=== PATIENT | male | born 1995 | race Caucasian/White ===

== ENCOUNTER 2022-09-07 11:16 | Inpatient (IN) | payer OTHER, SELFPAY ==
[2022-09-07 11:25] VITALS: BP 121/67; PULSE 78; RESP 16; TEMP 36.6; O2SAT 98; BMI 24.4
--- NOTE | 2022-09-07 11:26 | ED_ITS ---
HPI - Psych General Chief Complaint: Psychiatric Symptoms Stated Complaint: crisis Time Seen by Provider: 09/07/22 11:52 Related Data Home Medications Medication Instructions Recorded Confirmed fluoxetine 20 mg capsule 20 mg PO DAILY 09/07/22 09/07/22 trazodone 50 mg tablet 50 mg PO BEDTIME PRN Insomnia 09/07/22 09/07/22 Allergies Allergy/AdvReac Type Severity Reaction Status Date / Time No Known Allergies Allergy Verified 09/07/22 12:09 [facility] Social History Social History Household Members: Family Patient Tobacco Use Status: Current everyday Tobacco user Tobacco use type: Smokeless Tobacco Patient Interested in Nicotine Replacement: Yes Use of substances other than those prescribed or required for medical reasons: Yes Substance Use Type: Marijuana Substance Use Frequency: Chronic Longstanding Currently Displaying Signs/Symptoms of Drug Intoxication Withdrawal: No Have you been hit, kicked, punched, or otherwise hurt by someone within the past year? If so, by whom?: No Do you feel safe in your current relationship?: No Current Relationship Is there a partner from a previous relationship who is making you feel unsafe now?: No Are you made to feel afraid or neglected: No Spiritual Healthcare Practices: Denies Mormonism Healthcare Practices: Denies Cultural Healthcare Practices: Denies Advance Directives: No Advance Directives Information Provided: No Do you have thoughts of harming others: None Do you have a plan to hurt others: No Plan Nutrition Risks: Poor intake 0-25% >4 days service: No Sexual orientation: Don't Know Physical Exam Vital Signs: Vital Signs: Last Vital Signs Temp 97.8 F 09/08/22 08:45 Pulse 92 09/08/22 08:45 Resp 20 09/08/22 08:45 BP 140/70 H 09/08/22 08:45 Pulse Ox 96 09/08/22 08:45 O2 Del Method 09/08/22 08:45 BMI result Body Mass Index 24.4 Course Course Course Narrative: RME: Patient is a 27-year-old male who presents to the emergency department with reports of feeling scared, anxious, nervous about potential for nuclear war, making him unable to work. He also reports vomiting in the mornings, having generalized back pain that is ongoing. Recently started taking new psych medications this week, has a correctional facility psychiatrist provider. Crisis was in the home today and was recommended to come to ED. Denies SI/HI. Reports marijuana usage, denies additional recreational drug or alcohol usage. Plan: transfer to [facility], [facility] evaluation for whether inpatient psych services required Medications Administered Discontinued Medications Generic Name Dose Route Start Last Admin Trade Name Jalen PRN Reason Stop Dose Admin Haloperidol 2 mg 09/07/22 12:09 09/07/22 12:36 Haloperidol 1 Mg Tablet PO 09/07/22 12:10 2 mg ONCE ONE Administration Hydroxyzine HCl 25 mg 09/07/22 16:59 09/08/22 06:23 Hydroxyzine Hcl 25 Mg Tablet PO 25 mg Q6H PRN Administration Anxiety Influenza Virus Vaccine 0.5 ml 09/07/22 18:11 09/07/22 18:29 Flu Vacc [id number](6mos Up)/Pf 0.5 Ml Syringe IM 09/07/22 18:12 Not Given .ONCE ONE Lorazepam 1 mg 09/07/22 12:09 09/07/22 12:37 Lorazepam 1 Mg Tablet PO 09/07/22 12:10 1 mg ONCE ONE Administration Nicotine Polacrilex 2 mg 09/07/22 15:58 09/07/22 16:01 Nicotine Polacrilex Lozenge 2 Mg Lozenge BUCCAL 09/07/22 15:59 2 mg ONCE ONE Administration Nicotine Polacrilex 4 mg 09/07/22 16:59 09/08/22 12:28 Nicotine Polacrilex 2 Mg Gum BUCCAL 4 mg Q2H PRN Administration Nicotine Cravings Omeprazole 40 mg 09/07/22 12:09 09/07/22 12:37 Omeprazole 40 Mg Capsule.Dr PO 09/07/22 12:10 40 mg ONCE ONE Administration Trazodone HCl 50 mg 09/07/22 16:59 09/07/22 22:56 Trazodone Hcl 50 Mg Tablet PO 50 mg BEDTIME PRN Administration Insomnia Medical Decision Making Lab Data Result Diagrams: 09/07/22 12:26 09/08/22 08:24 Labs: Lab Results 09/07/22 09/07/22 09/07/22 Range/Units 12:26 12:26 12:26 WBC 7.8 (4.8-10.8) X10*3/uL RBC 5.56 (4.60-5.80) X10*6/uL Hgb 14.7 (14.0-18.0) g/dl Hct 45.0 (42.0-52.0) % MCV 80.9 (80.0-98.0) fL MCH 26.4 L (27.0-33.0) pg MCHC 32.7 (31.0-36.0) g/dl RDW 12.1 (11.0-16.0) % Plt Count 212 (160-400) X10*3/uL MPV 10.1 (9.4-12.4) fL Immature Gran % (Auto) 0.4 (0.0-0.4) % Neut % (Auto) 82.8 H (45-73) % Lymph % (Auto) 12.8 L (20-40) % [place] % (Auto) 3.5 (2-11) % Eos % (Auto) 0.1 (0-4) % Baso % (Auto) 0.4 (0-2) % Lymph # (Auto) 1.0 L (1.2-4.9) X10*3/uL [place] # (Auto) 0.3 (0.1-1.2) X10*3/uL Eos # (Auto) 0.0 (0.0-0.4) X10*3/uL Baso # (Auto) 0.0 (0.0-0.2) X10*3/uL Abs Immat Gran (auto) 0.03 (0.00-0.03) X10*3/uL Absolute Neuts (auto) 6.4 (2.0-8.3) x10*3/uL Absolute Nucleated RBC 0.000 (0.0-0.012) X10*3/uL Nucleated RBC % (auto) 0.0 (0.0-0.2) /100WBC Sodium 142 (135-145) mmol/L Potassium 4.0 (3.3-5.1) mmol/L Chloride 107 (96-108) mmol/L Carbon Dioxide 24 (22-29) mmol/L Anion Gap 15 (12-20) BUN 10 (9-16) mg/dL Creatinine 0.81 (0.5-1.4) mg/dL Estim Creat Clear Calc 154.8 Estimated GFR > 60 Random Glucose 90 (60-115) mg/dL Calcium 10.0 (8.4-10.2) mg/dL Total Bilirubin 0.7 (0.0-1.0) mg/dL AST 17 (5-37) U/L ALT 20 (0-40) U/L Alkaline Phosphatase 74 (39-117) U/L Total Protein 7.6 (6.5-8.0) g/dL Albumin 5.0 (3.5-5.0) g/dL TSH (0.32-4.0) uIU/mL Urine Opiates Screen Not Detected (Not Detect) Urine Fentanyl Screen Not Detected (Not Detect) Ur Barbiturates Screen Not Detected (Not Detect) Ur Phencyclidine Scrn Not Detected (Not Detect) Ur Amphetamines Screen Not Detected (Not Detect) U Benzodiazepines Scrn Not Detected (Not Detect) Urine Cocaine Screen Not Detected (Not Detect) U Marijuana (THC) Screen POSITIVE H (Not Detect) Ethyl Alcohol < 10 mg/dL COVID-19 (TASH) (Negative) COVID-19 Clin Com 09/07/22 09/07/22 Range/Units 12:26 12:26 WBC (4.8-10.8) X10*3/uL RBC (4.60-5.80) X10*6/uL Hgb (14.0-18.0) g/dl Hct (42.0-52.0) % MCV (80.0-98.0) fL MCH (27.0-33.0) pg MCHC (31.0-36.0) g/dl RDW (11.0-16.0) % Plt Count (160-400) X10*3/uL MPV (9.4-12.4) fL Immature Gran % (Auto) (0.0-0.4) % Neut % (Auto) (45-73) % Lymph % (Auto) (20-40) % [place] % (Auto) (2-11) % Eos % (Auto) (0-4) % Baso % (Auto) (0-2) % Lymph # (Auto) (1.2-4.9) X10*3/uL [place] # (Auto) (0.1-1.2) X10*3/uL Eos # (Auto) (0.0-0.4) X10*3/uL Baso # (Auto) (0.0-0.2) X10*3/uL Abs Immat Gran (auto) (0.00-0.03) X10*3/uL Absolute Neuts (auto) (2.0-8.3) x10*3/uL Absolute Nucleated RBC (0.0-0.012) X10*3/uL Nucleated RBC % (auto) (0.0-0.2) /100WBC Sodium (135-145) mmol/L Potassium (3.3-5.1) mmol/L Chloride (96-108) mmol/L Carbon Dioxide (22-29) mmol/L Anion Gap (12-20) BUN (9-16) mg/dL Creatinine (0.5-1.4) mg/dL Estim Creat Clear Calc Estimated GFR Random Glucose (60-115) mg/dL Calcium (8.4-10.2) mg/dL Total Bilirubin (0.0-1.0) mg/dL AST (5-37) U/L ALT (0-40) U/L Alkaline Phosphatase (39-117) U/L Total Protein (6.5-8.0) g/dL Albumin (3.5-5.0) g/dL TSH 0.82 (0.32-4.0) uIU/mL Urine Opiates Screen (Not Detect) Urine Fentanyl Screen (Not Detect) Ur Barbiturates Screen (Not Detect) Ur Phencyclidine Scrn (Not Detect) Ur Amphetamines Screen (Not Detect) U Benzodiazepines Scrn (Not Detect) Urine Cocaine Screen (Not Detect) U Marijuana (THC) Screen (Not Detect) Ethyl Alcohol mg/dL COVID-19 (TASH) Negative (Negative) COVID-19 Clin Com See Note Discharge Plan Discharge Clinical Impression: Anxiety Patient Disposition: Admitted As Inpatient Interventions: Admission Worksheet (ED) Last Done: 09/07/22 16:51 Discharge Date/Time: 09/07/22 16:52
--- NOTE | 2022-09-07 11:43 | MHC.CARE ---
Pt was assessed by N crisis in the community and is a bedsearch
--- NOTE | 2022-09-07 12:11 | ED.PSYCH ---
HPI - Psych General Chief Complaint: Psychiatric Symptoms Stated Complaint: crisis Time Seen by Provider: 09/07/22 11:52 Source: patient and family History of Present Illness HPI Narrative: Patient with a history of anxiety feeling much worse over the past 2 weeks. He states he feels like his thoughts are racing. He has states he has an overwhelming sense of anxiety and fear of nuclear war. Seems was triggered by reading an article 2 weeks ago. Prior to that he had seen nurse practitioner who prescribed him will limit tried him in fluoxetine. He stopped it over the summer but restarted a week ago after the symptoms became much worse. He states he feels like they might help for a little while but overall if not improved his symptoms. No suicidal or homicidal ideation. He was evaluated outpatient by in over the phone and recommended to go to the hospital. He is currently a bed search based on their outpatient evaluation. He denies hearing voices. No history of psychosis. He uses marijuana daily secondary to nausea but no other drugs. Denies alcohol. Related Data Home Medications Medication Instructions Recorded Confirmed fluoxetine 20 mg capsule 20 mg PO DAILY 09/07/22 09/07/22 trazodone 50 mg tablet 50 mg PO BEDTIME PRN Insomnia 09/07/22 09/07/22 Allergies Allergy/AdvReac Type Severity Reaction Status Date / Time No Known Allergies Allergy Verified 09/07/22 12:09 Review of Systems Constitutional: Comments: No fevers or chills. Some weight loss over the last 2 weeks. Not quantified Cardiovascular: Comments: No chest pain her palpitations Respiratory: Comments: Patient states he has a chronic cough over the past 6 months Gastrointestinal: Comments: Reflux symptoms as well as chronic daily nausea. He is not on any antacids or treatment for this. Musculoskeletal: Comments: No injuries Integumentary/Breasts: Comments: No rash Neurologic: Comments: No focal weakness PMFSH Social History Social History Household Members: Family Patient Tobacco Use Status: Current everyday Tobacco user Tobacco use type: Smokeless Tobacco Patient Interested in Nicotine Replacement: Yes Use of substances other than those prescribed or required for medical reasons: Yes Substance Use Type: Marijuana Substance Use Frequency: Chronic Longstanding Currently Displaying Signs/Symptoms of Drug Intoxication Withdrawal: No Have you been hit, kicked, punched, or otherwise hurt by someone within the past year? If so, by whom?: No Do you feel safe in your current relationship?: No Current Relationship Is there a partner from a previous relationship who is making you feel unsafe now?: No Are you made to feel afraid or neglected: No Spiritual Healthcare Practices: Denies Evangelical Healthcare Practices: Denies Cultural Healthcare Practices: Denies Advance Directives: No Advance Directives Information Provided: No Do you have thoughts of harming others: None Do you have a plan to hurt others: No Plan Nutrition Risks: Poor intake 0-25% >4 days service: No Sexual orientation: Don't Know Physical Exam Vital Signs: Vital Signs: Last Vital Signs Temp 97.8 F 09/08/22 08:45 Pulse 92 09/08/22 08:45 Resp 20 09/08/22 08:45 BP 140/70 H 09/08/22 08:45 Pulse Ox 96 09/08/22 08:45 O2 Del Method 09/08/22 08:45 BMI result Body Mass Index 24.4 Const: Other: Awake alert in no acute distress Resp: Other: Clear and equal bilaterally Cardio: Other: Regular rate and rhythm without murmurs rubs or gallops GI: Other: Soft nontender nondistended Skin: Other: Warm pink and dry Neuro: Other: Nonfocal Psych: Other: Depressed with suicidal ideation Course Course Course Narrative: Seen by crisis. Patient qualifies for inpatient hospitalization. Medical workup negative. Tox screen positive for cannabinoids, negative for all else Medications Administered Discontinued Medications Generic Name Dose Route Start Last Admin Trade Name Freq PRN Reason Stop Dose Admin Haloperidol 2 mg 09/07/22 12:09 09/07/22 12:36 Haloperidol 1 Mg Tablet PO 09/07/22 12:10 2 mg ONCE ONE Administration Hydroxyzine HCl 25 mg 09/07/22 16:59 09/08/22 06:23 Hydroxyzine Hcl 25 Mg Tablet PO 25 mg Q6H PRN Administration Anxiety Influenza Virus Vaccine 0.5 ml 09/07/22 18:11 09/07/22 18:29 Flu Vacc [id number](6mos Up)/Pf 0.5 Ml Syringe IM 09/07/22 18:12 Not Given .ONCE ONE Lorazepam 1 mg 09/07/22 12:09 09/07/22 12:37 Lorazepam 1 Mg Tablet PO 09/07/22 12:10 1 mg ONCE ONE Administration Nicotine Polacrilex 2 mg 09/07/22 15:58 12/19/22 16:01 Nicotine Polacrilex Lozenge 2 Mg Lozenge BUCCAL 09/07/22 15:59 2 mg ONCE ONE Administration Nicotine Polacrilex 4 mg 09/07/22 16:59 09/08/22 12:28 Nicotine Polacrilex 2 Mg Gum BUCCAL 4 mg Q2H PRN Administration Nicotine Cravings Omeprazole 40 mg 09/07/22 12:09 09/07/22 12:37 Omeprazole 40 Mg Capsule. PO 09/07/22 12:10 40 mg ONCE ONE Administration Trazodone HCl 50 mg 09/07/22 16:59 09/07/22 22:56 Trazodone Hcl 50 Mg Tablet PO 50 mg BEDTIME PRN Administration Insomnia Medical Decision Making Medical Decision Making MDM Narrative: Patient with anxiety disorder and per his mom question of bipolar. She states he has never been formally diagnosed however. Decompensating as an outpatient despite restarting medications, Lamotrigine and fluoxetine. Is a bed search by in. I discussed with patient medication for his GI symptoms as well as is anxiety. He is agreeable. Haloperidol, Ativan, Prilosec ordered all p.o.. Will order medical workup including thyroid studies med as it appears he has not had a medical workup prior to this for his psychiatric issues. Lab Data Result Diagrams: 09/07/22 12:26 09/08/22 08:24 Labs: Lab Results 09/07/22 09/07/22 09/07/22 Range/Units 12:26 12:26 12:26 WBC 7.8 (4.8-10.8) X10*3/uL RBC 5.56 (4.60-5.80) X10*6/uL Hgb 14.7 (14.0-18.0) g/dl Hct 45.0 (42.0-52.0) % MCV 80.9 (80.0-98.0) fL MCH 26.4 L (27.0-33.0) pg MCHC 32.7 (31.0-36.0) g/dl RDW 12.1 (11.0-16.0) % Plt Count 212 (160-400) X10*3/uL MPV 10.1 (9.4-12.4) fL Immature Gran % (Auto) 0.4 (0.0-0.4) % Neut % (Auto) 82.8 H (45-73) % Lymph % (Auto) 12.8 L (20-40) % [place] % (Auto) 3.5 (2-11) % Eos % (Auto) 0.1 (0-4) % Baso % (Auto) 0.4 (0-2) % Lymph # (Auto) 1.0 L (1.2-4.9) X10*3/uL [place] # (Auto) 0.3 (0.1-1.2) X10*3/uL Eos # (Auto) 0.0 (0.0-0.4) X10*3/uL Baso # (Auto) 0.0 (0.0-0.2) X10*3/uL Abs Immat Gran (auto) 0.03 (0.00-0.03) X10*3/uL Absolute Neuts (auto) 6.4 (2.0-8.3) x10*3/uL Absolute Nucleated RBC 0.000 (0.0-0.012) X10*3/uL Nucleated RBC % (auto) 0.0 (0.0-0.2) /100WBC Sodium 142 (135-145) mmol/L Potassium 4.0 (3.3-5.1) mmol/L Chloride 107 (96-108) mmol/L Carbon Dioxide 24 (22-29) mmol/L Anion Gap 15 (12-20) BUN 10 (9-16) mg/dL Creatinine 0.81 (0.5-1.4) mg/dL Estim Creat Clear Calc 154.8 Estimated GFR > 60 Random Glucose 90 (60-115) mg/dL Calcium 10.0 (8.4-10.2) mg/dL Total Bilirubin 0.7 (0.0-1.0) mg/dL AST 17 (5-37) U/L ALT 20 (0-40) U/L Alkaline Phosphatase 74 (39-117) U/L Total Protein 7.6 (6.5-8.0) g/dL Albumin 5.0 (3.5-5.0) g/dL TSH (0.32-4.0) uIU/mL Urine Opiates Screen Not Detected (Not Detect) Urine Fentanyl Screen Not Detected (Not Detect) Ur Barbiturates Screen Not Detected (Not Detect) Ur Phencyclidine Scrn Not Detected (Not Detect) Ur Amphetamines Screen Not Detected (Not Detect) U Benzodiazepines Scrn Not Detected (Not Detect) Urine Cocaine Screen Not Detected (Not Detect) U Marijuana (THC) Screen POSITIVE H (Not Detect) Ethyl Alcohol < 10 mg/dL COVID-19 (TASH) (Negative) COVID-19 Clin Com 09/07/22 09/07/22 Range/Units 12:26 12:26 WBC (4.8-10.8) X10*3/uL RBC (4.60-5.80) X10*6/uL Hgb (14.0-18.0) g/dl Hct (42.0-52.0) % MCV (80.0-98.0) fL MCH (27.0-33.0) pg MCHC (31.0-36.0) g/dl RDW (11.0-16.0) % Plt Count (160-400) X10*3/uL MPV (9.4-12.4) fL Immature Gran % (Auto) (0.0-0.4) % Neut % (Auto) (45-73) % Lymph % (Auto) (20-40) % [place] % (Auto) (2-11) % Eos % (Auto) (0-4) % Baso % (Auto) (0-2) % Lymph # (Auto) (1.2-4.9) X10*3/uL [place] # (Auto) (0.1-1.2) X10*3/uL Eos # (Auto) (0.0-0.4) X10*3/uL Baso # (Auto) (0.0-0.2) X10*3/uL Abs Immat Gran (auto) (0.00-0.03) X10*3/uL Absolute Neuts (auto) (2.0-8.3) x10*3/uL Absolute Nucleated RBC (0.0-0.012) X10*3/uL Nucleated RBC % (auto) (0.0-0.2) /100WBC Sodium (135-145) mmol/L Potassium (3.3-5.1) mmol/L Chloride (96-108) mmol/L Carbon Dioxide (22-29) mmol/L Anion Gap (12-20) BUN (9-16) mg/dL Creatinine (0.5-1.4) mg/dL Estim Creat Clear Calc Estimated GFR Random Glucose (60-115) mg/dL Calcium (8.4-10.2) mg/dL Total Bilirubin (0.0-1.0) mg/dL AST (5-37) U/L ALT (0-40) U/L Alkaline Phosphatase (39-117) U/L Total Protein (6.5-8.0) g/dL Albumin (3.5-5.0) g/dL TSH 0.82 (0.32-4.0) uIU/mL Urine Opiates Screen (Not Detect) Urine Fentanyl Screen (Not Detect) Ur Barbiturates Screen (Not Detect) Ur Phencyclidine Scrn (Not Detect) Ur Amphetamines Screen (Not Detect) U Benzodiazepines Scrn (Not Detect) Urine Cocaine Screen (Not Detect) U Marijuana (THC) Screen (Not Detect) Ethyl Alcohol mg/dL COVID-19 (TASH) Negative (Negative) COVID-19 Clin Com See Note Discharge Plan Discharge Clinical Impression: Anxiety Patient Disposition: Admitted As Inpatient Interventions: Admission Worksheet (ED) Last Done: 09/07/22 16:51 Discharge Date/Time: 09/07/22 16:52
[2022-09-07 12:33] LABS: MANUAL DIFF FLAG NO
[2022-09-07] MEDS: HaloperidoL 1 MG TABLET 2 MG PO (12:36)
[2022-09-07 12:37] LABS: Basophils Percent Auto 0.4 % (0-2); Eosinophils Percent Auto 0.1 % (0-4); Hemoglobin 14.7 g/dl (14.0-18.0); Imm Gran Abs Auto 0.03 X10*3/uL (0.00-0.03); Imm Gran Pct Auto 0.4 % (0.0-0.4); Lymphocytes Percent Auto 12.8 % (20-40); Mean Corpuscular HGB Conc 32.7 g/dl (31.0-36.0); Mean Corpuscular Hemoglobin 26.4 pg (27.0-33.0); Mean Corpuscular Volume 80.9 fL (80.0-98.0); Mean Platelet Volume 10.1 fL (9.4-12.4); Monocytes Absolute Auto 0.3 X10*3/uL (0.1-1.2); Monocytes Percent Auto 3.5 % (2-11); Neutrophils Absolute Auto 6.4 x10*3/uL (2.0-8.3); Neutrophils Percent Auto 82.8 % (45-73); Platelet Count 212 X10*3/uL (160-400); Red Blood Count 5.56 X10*6/uL (4.60-5.80); Red Cell Distribution Width 12.1 % (11.0-16.0); White Blood Count 7.8 X10*3/uL (4.8-10.8)
[2022-09-07] MEDS: Omeprazole 40 MG CAPSULE.DR PO (12:37)
[2022-09-07] MEDS: LORazepam 1 MG TABLET PO (12:37)
[2022-09-07 12:57] LABS: Amphetamine Screen Urine Not Detected (Not Detect); Barbiturates, Urine Not Detected (Not Detect); Benzodiazepines Screen Urine Not Detected (Not Detect); COVID-19 Test Negative (Negative); Cannabinoid Screen Urine POSITIVE (Not Detect); Cocaine Screen Urine Not Detected (Not Detect); IDNOW Serial# 16C4AD1C; Opiate Screen Urine Not Detected (Not Detect); Phencyclidine Screen Urine Not Detected (Not Detect)
[2022-09-07 13:04] LABS: Fentanyl, urine Not Detected (Not Detect)
[2022-09-07 13:05] LABS: Alanine Aminotransferase 20 U/L (0-40); Alkaline Phosphatase 74 U/L (39-117); Anion Gap 15 (12-20); Aspartate Amino Transferase 17 U/L (5-37); Blood Urea Nitrogen 10 mg/dL (9-16); Carbon Dioxide 24 mmol/L (22-29); Chloride 107 mmol/L (96-108); Creatinine Clr Calc Pharmacy 154.8; Estimated Glomerular Filt Rate > 60; Ethanol < 10 mg/dL; Glucose Random 90 mg/dL (60-115); Sodium 142 mmol/L (135-145); Total Protein 7.6 g/dL (6.5-8.0)
[2022-09-07 13:12] LABS: TSH reflex Free T4 0.82 uIU/mL (0.32-4.0)
--- OUTSIDE RECORDS SUMMARY | 2022-09-07 13:33 | XMS_ITS ---
:1995 Author Allergies Code Code System Name Reaction Severity Status Onset NKDA ? Notes: seasonal Medications Name Status Start Date Stop Date ? ? azithromycin 250 mg tablet Unknown ? Not a vailable clindamycin 1 % topical foam Unknown ? Not available clindamycin 1 %-benzoyl peroxide 5 % topical gel Unknown ? Not available doxycycline monohydrate 50 mg capsule Unknown ? Not available Epiduo 0.1 %-2.5 % topical gel Unknown ? N ot available Apply by topical route daily. penicillin V potassium 500 mg tablet Completed ? 09/19/2010 Take 1 tablet twice a day by oral route for 10 days. tretinoin 0.025 % topical cream Unknown ? Not available Problems Name Status Onset Date Source ? Pain in Limb Unknown 05/09/2007 ? Viral Disease Unknown 12/04/2007 ? Streptococcal Sore Throat Unknown ? Encoun ter Anxiety State Unknown ? Encounter Pain in Throat Unknown ? Encounter Acute Pharyngitis Unknown ? Encounter Acute Upper Respiratory Infection Unknown ? Encounter Bronchitis Unknown ? Encounter Acne Unknown ? Encounter Abnormal Weight Loss Unknown ? Encounter Sprains and Strains of Joints and Adjacent Muscles Unknown ? Encounter Procedures None recorded. Results Lab Results Date Name Specimen Result Interpretation Description Value Range Status Address ? ? Rapid Strep a ? Rapid Strep negative ? ? [facility] : [address], [place] ? Culture, Throat ? Result 24 hr negative ? ? [facility] : [address], [place] ? ? ? Result 48 hr negative ? ? [facility] : [address], [place] ? Pulse Oximetry Lab ? O2 Saturation 100% RA ? ? [facility] : [address], [place] ? Culture, Throat ? Result 24 hr negative ? ? [facility] : [address], [place] ? ? ? Result 48 hr negative ? ? [facility] : [address], [place] ? Rapid Strep a ? Rapid Strep negative ? ? [facility] : [address], [place] ? Rapid Strep a ? Rapid Strep positive ? ? [facility] : [address] Past Encounters None recorded. Social History Tobacco Smoking Status Never Smoker Vaccine List Vaccine Type DTaP, unspecified formulation 12/29/1996 06/21/2000 DTP 1995 1995 08/28/1996 Hep B, unspecified formulation 1995 1995 03/24/1996 Hib, unspecified formulation 1995 1995 1995 09/29/1996 influenza, live, intranasal 07/28/2011 08/01/2012 influenza, live, intranasal, quadrivalen t 09/06/2013 influenza, seasonal, injectable 09/09/2009 meningococcal MCV4P 07/28/2011 meningococcal, unspecified formulation 06/30/2007 MMR 09/29/1996 08/01/1999 polio, unspecified formulation 1995 1995 1995 06/21/2000 Tdap 06/30/2007 varicella 06/22/1996 07/11/2008 Plan of Care Reminders Provider Appointments None recorded. ? ? Lab None recorded. ? ? Referral None recorded. ? ? Procedures None recorded. ? ? Surgeries None recorded. ? ? Imaging None recorded. ? ? Vitals 04/30/2014 03:00PM Well Child Check 20 Height Weight BMI Blood Pressure 73 in 157 lbs 20.7 kg/m2 116/56 mm[Hg] 09/06/2013 02:30PM Well Child Check 20 Height Weight BMI Blood Pressure 72.5 in 155 lbs 6.4 oz 20.8 kg/m2 110/70 mm[Hg] 03/06/2013 03:30PM Recheck Visit Height Weight BMI Blood Pressure 72.5 in 155 lbs 3.2 oz 20.8 kg/m2 112/66 mm[Hg] 01/04/2013 04:30PM Consult 30 Minutes Weight Blood Pressure 152 lbs 110/68 mm[Hg] 10/25/2012 02:30PM Recheck 15 min Height Weight BMI Blood Pressure 72 in 153 lbs 12.8 oz 20.9 kg/m2 118/66 mm[Hg] 08/25/2012 04:30PM Recheck Visit Height Weight BMI Blood Pressure 72 in 162 lbs 9.6 oz 22.1 kg/m2 120/62 mm[Hg] 08/01/2012 02:00PM Well Child Check 20 Height Weight BMI Blood Pressure 72.25 in 159 lbs 6.4 oz 21.5 kg/m2 116/60 mm[Hg] 07/28/2011 03:30PM Well Child Check 15 Height Weight BMI Blood Pressure 71.75 in 158 lbs 9.6 oz 21.7 kg/m2 120/62 mm[Hg] 07/17/2010 03:30PM Well Child Check 15 Height Weight BMI Blood Pressure 70 in 146 lbs 20.9 kg/m2 104/64 mm[Hg] 07/18/2009 09:30AM Well Child Check 15 Height Weight BMI Blood Pressure 66.5 in 134 lbs 21.3 kg/m2 120/56 mm[Hg] 07/11/2008 Height Weight BMI 63 in 116 lbs 20.5 kg/m2 06/30/2007 Height Weight BMI 60.75 in 98 lbs 18.7 kg/m2
--- OUTSIDE RECORDS SUMMARY | 2022-09-07 13:33 | XMS_ITS ---
:1995 Author Care Team Providers Name Role Phone RA DIAZ MD Primary Care Provider [phone] Allergies Code Code System Name Reaction Severity Status Onset NKDA ? Medications No Medications Reported Problems None recorded. Procedures None recorded. Results Lab Results Date Name Specimen Result Interpretation Description Value Range Status Address ? 02/02/2022 CBC W/ Auto ? Wbc 6.6 K/mm3 (4.0-11.0) F inal [facility] Diff K/mm3 Reference [facility]: [address], [place] ? ? ? Rbc 5.40 (4.70-6.10) Final [facility] M/mm3 M/mm3 Reference [facility]: [address], [place] ? ? ? Hgb 14.1 (13.7-17.1) Final [facility] gm/dL gm/dL Reference [facility]: [address], [place] ? ? ? Hct 46.0 % (40.5-50.0) Final [facility] % Reference [facility]: [address], [place] ? ? ? Mcv 85.2 fL (80.0-94.0) Final [facility] fL Reference [facility]: [address], [place] ? ? Low Mch 26.1 pg (27.0-34.0) Final [facility] pg Reference [facility]: [address], [place] ? ? Low Mchc 30.7 g/dL (33.0-37.0) Final [facility] g/dL [facility]: [address], [place] ? ? ? Plt 230 K/mm3 (150-460) Final [place] [facility] K/mm3 Reference [facility]: [address], [place] ? ? ? RDW-SD 39.6 fL (<47.0) fL Final [place] Reference [facility]: [address], [place] ? ? ? Mpv 11.3 fL (9.4-12.4) Final [place] fL Reference [facility]: [address], [place] ? ? ? Automated 0.0 #/100 ? Final [place] NRBC WBC's Reference Labor[facility]: [address], [place] ? ? ? Abs. NRBC 0.0 K/mm3 ? Final [facility] Reference Labor[facility]: [address], [place] ? ? ? Neut # 4.2 K/mm3 (1.3-7.0) Final [place] K/mm3 Reference Labor[facility]: [address], [place] ? ? ? Lymph # 1.7 K/mm3 (0.8-3.1) Final [facility] K/mm3 Reference [facility]: [address], [place] ? ? ? [place]# 0.5 K/mm3 (0.4-1.3) Final [facility] ben[facility]z K/mm3 Reference Laboratori es: [address], [place] ? ? ? Eo # 0.1 K/mm3 (0.0-0.4) Final [facility] K/mm3 Reference Laboratori es: [address], [place] ? ? ? Baso # 0.0 K/mm3 (0.0-0.1) Final [facility] K/mm3 Reference Laboratori es: [address], [place] ? ? ? Abs. Imm 0.0 K/mm3 ? Final [facility] Gran Reference Laboratori es: [address], [place] ? ? ? Neut 63.9 % (44-76) % Final [facility] Reference [facility]: [address], [place] ? ? ? Lymph 25.8 % (15-43) % Final [facility] Reference [facility]: [address], [place] ? ? ? Monocyte 7.4 % (4.5-10.5) Final [place] % Reference [facility]: [address], [place] ? ? ? Eo 2.1 % (0-6) % Final [facility] Reference [facility]: [address], [place] ? ? ? Baso 0.5 % (0-2) % Final [facility] Reference [facility]: [address], [place] ? ? ? Imm Gran 0.3 % ? Final [facility] Reference [facility]: [address], [place] 02/02/2022 CMP, Serum ? Glucose 81 mg/dL (70-99) Mili l [facility] or Plasma mg/dL Referen ce Laboratori es: [address], [place] ? ? ? Bun 12 mg/dL (6-20) Final [facility] mg/dL Reference Labor[facility]: [address], [place] ? ? ? Creatinine 1.0 mg/dL (0.7-1.2) Final [facility] mg/dL Reference Labor[facility]: [address], [place] ? ? ? Sodium 140 (133-145) Final [facility] mmol/L mmol/L Reference Labor[facility]: [address], [place] ? ? ? Potassium 4.7 (3.6-5.2) Final [place] mmol/L mmol/L Reference [facility]: [address], [place] ? ? ? Chloride 102 (98-107) Final [facility] mmol/L mmol/L Reference [facility]: [address], [place] ? ? ? Bicarbonate 26 mmol/L (22-29) Final [facility] mmol/L Reference Labor[facility]: [address], [place] ? ? ? Anion Gap 12 (4-17) Final [facility] Reference [facility]: [address], [place] ? ? High Albumin 5.4 gm/dL (3.4-4.8) Final [facility] gm/dL Reference [facility]: [address], [place] ? ? ? Calcium 9.8 mg/dL (8.6-10.5) Final [facility] mg/dL Reference Labor[facility]: [address], [place] ? ? ? Bilirubin,t 0.5 mg/dL (0-1.2) Final [facility] otal mg/dL Reference Laborator[facility]: [address], [place] ? ? ? Total 7.3 gm/dL (6.2-8.2) Final [facility] ben[facility]z Protein gm/dL Reference Laboratori es: [address], [place] ? ? ? Ag Ratio 2.8 ? Final [facility] Reference [facility]: [address], [place] ? ? ? Ast 22 U/L (0-40) U/L Final [facility] Reference [facility]: [address], [place] ? ? ? Alk Phos 81 U/L (40-129) Final [facility] U/L Reference Labor[facility]: [address], [place] ? ? ? Alt 41 U/L (0-41) U/L Final [facility] Reference [facility]: [address], [place] ? ? ? Estimated 109 ? Final [facility] GFR mL/min/1. Referen ce Creatinine 73 M2 Labora tories: [address], [place] 02/02/2022 Lipase, High Lipase 91 U/L (13-60) U/L Final [facility] Serum or Referenc e Plasma Laboratori es: [address], [place] 02/02/2022 TSH, Serum ? Tsh 1.32 (0.4-4.2) Final [place] Plasma uIU/mL uIU/mL Referen ce Laboratori es: [address], [place] 02/02/2022 Lyme Disease ? Lyme Ab ? (neg) Final [facility] Ab, Total, W/reflex Refe rence Serum Laboratori es: [address], [place] 02/02/2022 Tick-borne Normal Anaplasma not (notde) Mili l [facility] Disease PCR detected Referen ce Panel Laboratori es: [address], [place] ? ? Normal Babesia PCR not (notde) Final [place] [facility] detected Referenc e Laboratori es: [address], [place] ? ? Normal Ehrlichia ? (notde) Final [place] PCR Reference Labor[facility]: [address], [place] 02/02/2022 Rapid Flu ? Flu negative ? ? [facility] (A[facility]B) [place]: 57 [facility] 02/02/2022 Rapid Strep ? Strep negative ? ? [facility] [place]: 57 Throat [facility] 02/02/2022 SARS CoV 2 ? Result negative ? ? [facility] [place] [facility] [place]: 57 (COVID-19), [facility], QL, instructor ballroom dancing-PCR, [facility] Respiratory Specimen Past Encounters Encounter Date Diagnosis Provider 06/01/2022 Impacted Cerumen of Bilateral Ears Neena Ibarra, PA: [address] [place] [address], Ph. 02/02/2022 Suspected COVID-19; Nausea; Neck Nia Michel PA: 57 [facility], Pain; [place] [address], Ph. Social History None recorded. Vaccine List Vaccine Type COVID-19, mRNA, LNP-S, PF, 100 mcg/0.5 m L dose (Moderna) 05/08/2021 DTaP 12/29/1996 06/21/2000 [id number] 1995 09/29/1996 DTP 1995 1995 08/28/1996 Hep B, adolescent or pediatric 1995 1995 03/24/1996 Hib (HbOC) 1995 1995 1995 09/29/1996 influenza, live, intranasal 07/28/2011 08/01/2012 influenza, live, intranasal, quadrivalen t 09/06/2013 influenza, seasonal, injectable 09/09/2009 09/06/2013 meningococcal MCV4P 07/28/2011 meningococcal MPSV4 06/30/2007 07/28/2011 meningococcal, unspecified formulation 06/30/2007 MMR 09/29/1996 08/01/1999 OPV 1995 1995 1995 06/21/2000 Tdap 06/30/2007 varicella 06/22/1996 07/11/2008 Plan of Care Reminders Provider Appointments None recorded. ? ? Lab None recorded. ? ? Referral None recorded. ? ? Procedures None recorded. ? ? Surgeries None recorded. ? ? Imaging None recorded. ? ? Vitals 06/01/2022 10:30AM Established Patient Blood Pressure 96/64 mm[Hg] 02/02/2022 02:45PM New Patient Blood Pressure 126/76 mm[Hg]
[2022-09-07 14:08] LABS: Bilirubin Total 0.7 mg/dL (0.0-1.0)
[2022-09-07] MEDS: Nicotine Polacrilex Lozenge 2 MG LOZENGE BUCCAL (16:01)
[2022-09-07 16:45] VITALS: BP 147/87; PULSE 73; RESP 18; TEMP 36.5; O2SAT 99
[2022-09-07 17:41] VITALS: BMI 22.8
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
[2022-09-07] MEDS: traZODone HCL 50 MG TABLET PO (22:56)
[2022-09-08] MEDS: hydrOXYzine HCL 25 MG TABLET PO (06:23)
[2022-09-08] MEDS: Nicotine Polacrilex 2 MG GUM 4 MG BUCCAL ×2 (08:31→12:28)
[2022-09-08 08:45] VITALS: BP 140/70; PULSE 92; RESP 20; TEMP 36.6; O2SAT 96
[2022-09-08 09:10] LABS: Alanine Aminotransferase 19 U/L (0-40); Albumin Level 4.9 g/dL (3.5-5.0); Alkaline Phosphatase 71 U/L (39-117); Anion Gap 13 (12-20); Aspartate Amino Transferase 16 U/L (5-37); Bilirubin Direct 0.4 mg/dL (0.0-0.5); Blood Urea Nitrogen 11 mg/dL (9-16); Calcium 10.1 mg/dL (8.4-10.2); Carbon Dioxide 25 mmol/L (22-29); Chloride 105 mmol/L (96-108); Cholesterol 163 mg/dL; Creatinine Clr Calc Pharmacy 158.1; Estimated Glomerular Filt Rate > 60; Glucose Fasting 91 mg/dL (60-99); HDL Cholesterol 47 mg/dL; LDL Cholesterol Calculated 101 mg/dl; Potassium 3.9 mmol/L (3.3-5.1); Sodium 139 mmol/L (135-145); Total Protein 7.4 g/dL (6.5-8.0); Triglycerides 76 mg/dL
[2022-09-08 09:29] LABS: Thyroid Stimulating Hormone 1.11 uIU/mL (0.32-4.0)
[2022-09-08 11:30] LABS: Bilirubin Total 0.9 mg/dL (0.0-1.0)
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
--- NOTE | 2022-09-08 15:30 | PC.NURSE ---
Patient alert, oriented x3, anxious for discharge. Patient affect much brighter, denies SI/HI, denies AH/VH. Reviewed discharge instructions and belongings w/ patient- patient verbalized understanding, denies any concerns.
[2022-09-08 15:33] LABS: Folate 14.5 ng/mL (> or = 4.0); Vitamin B12 420 pg/mL (200-900)
== END 2022-09-08 15:30 | disposition home or self-care (01) | DRG 880 ==
LOC: HO.ED 13:32 → HO.PADLT16 16:25
PROVIDERS: Admitting Provider Psychiatry & Neurology Psychiatry; Emergency Provider Emergency Medicine; PCP Pediatrics; Visit Provider Psychiatry & Neurology Psychiatry
DX: F41.9 Anxiety disorder, unspecified (principal); F17.210 Nicotine dependence, cigarettes, uncomplicated; Z71.6 Tobacco abuse counseling; Z20.822 Contact with and (suspected) exposure to COVID-19; Z79.899 Other long term (current) drug therapy
CPT/HCPCS: 36415; 80053; 80061; 80076; 80307; 82077; 82607; 82746; 84443; 85025; 87635; 99285